=== PATIENT | male | born 1975 | race African-American/Black ===

== ENCOUNTER 2021-01-03 04:51 | Day surgery (SDC) | payer OTHER ==
[2021-01-01 17:56] VITALS: BMI 36.0
[2021-01-03] MEDS ORDERED: DEXMEDETOMIDINE HCL 200 MCG/2 ML IVPB ONE (07:00)
[2021-01-03] MEDS ORDERED: ACETAMINOPHEN INJECTION 200 ML IVPB ONE (07:01)
[2021-01-03] MEDS ORDERED: SUCCINYLCHOLINE CHLORIDE 200 MG/10 ML SYRINGE ONE (07:13)
[2021-01-03] MEDS ORDERED: KETAMINE HCL 200 MG/20 ML VIAL ONE (07:13)
[2021-01-03] MEDS ORDERED: PROPOFOL 20 ML ONE ×3 (07:13→08:37)
[2021-01-03] MEDS ORDERED: MIDAZOLAM HCL 2 MG/2 ML SINGLE DOSE VIAL ONE ×2 (07:13→08:21)
[2021-01-03] MEDS ORDERED: LIDOCAINE HCL 1%, 10 MG/ML (20ML VIAL) INF ONE ×2 (08:15→08:43)
[2021-01-03] MEDS ORDERED: BUPIVACAINE HCL/PF 0.5% (5MG/ML) 10 ML VIAL IJ ONE (08:15)
[2021-01-03] MEDS ORDERED: LIDOCAINE HCL/PF 2% SDV 5ML VIAL ONE (08:35)
[2021-01-03] MEDS ORDERED: BUPIVACAINE HCL/PF 0.5% (5MG/ML) 10 ML VIAL ONE (08:40)
[2021-01-03] MEDS ORDERED: amLODIPine BESYLATE 5 MG TABLET (FP) PO SCH (10:00)
[2021-01-03] MEDS ORDERED: oxyCODONE HCL 5 MG TABLET PO PRN (10:46)
[2021-01-03] MEDS ORDERED: ONDANSETRON 4 MG/2 ML VIAL IVPUSH PRN (10:46)
[2021-01-03] MEDS ORDERED: LACTATED RINGERS SOLUTION 1,000 ML IV SCH (11:00)
[2021-01-03] MEDS ORDERED: oxyCODONE HCL 5 MG TABLET ONE (12:29)
[2021-01-03 12:41] VITALS: BP 100/63; PULSE 66; TEMP 97.9
== END 2021-01-03 14:05 | disposition home or self-care (01) ==
LOC: JASU-SURG 04:51
PROVIDERS: ATTEND Podiatrist Foot & Ankle Surgery
PROC: 0QBM0ZZ Excision of Left Tarsal, Open Approach (ICD-10-PCS; 2021-01-03)
PROC: 0YPB0YZ Removal of Other Device from Left Lower Extremity, Open Approach (ICD-10-PCS; principal; 2021-01-03 07:30)
DX: S82.842A Displaced bimalleolar fracture of left lower leg, initial encounter for closed fracture (principal); M19.172 Post-traumatic osteoarthritis, left ankle and foot; X58.XXXA Exposure to other specified factors, initial encounter; Y93.9 Activity, unspecified; Y92.9 Unspecified place or not applicable; Y99.9 Unspecified external cause status
CPT/HCPCS: 73610-TC-LT-FY; 76000-TC-FY; 94760; 97116-GP; J0131